=== PATIENT | male | born 1970 | race Caucasian/White ===

== ENCOUNTER 2020-10-19 21:49 | Inpatient (IN) | payer BC, OTHER ==
[~2020-10-19] VITALS: Ht 167.6 cm; Wt 82.1 kg
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
[2020-10-19 21:50] VITALS: BP 232/149
[2020-10-19 22:28] LABS: ABSOLUTE NEUTROPHILS 12.4 thou/uL (1.4-8.2); BASOPHILS 0.4 % (0.0-2.0); EOSINOPHILS 2.2 % (0.0-3.0); HEMATOCRIT 50.3 % (42.0-52.0); HEMOGLOBIN 16.3 gm/dL (14.0-18.0); LYMPHOCYTES 17.4 % (24.0-44.0); MCH 31.4 pg (26.0-34.0); MCHC 32.3 g/dL (28.0-37.0); MCV 97.2 fL (80.0-100.0); MONOCYTES 4.7 % (1.0-8.0); PLATELET COUNT 259 thou/uL (150-400); POLYS 75.3 % (36.0-66.0); RBC 5.18 mil/uL (4.50-6.00); RDW 14.2 % (10.5-14.5); WBC 16.4 thou/uL (4.0-11.0)
[2020-10-19 22:42] LABS: BE(vivo) -7.7 mmol/L (-2 to +3); HCO3 19.1 mmol/L (22.0-26.0); PCO2 43.6 mmHg (35.0-45.0); PO2 501.9 mmHg (80.0-100.0); sO2 99.8 % (92.0-98.0)
[2020-10-19 23:03] LABS: ANION GAP 12 mmol/L (7-16); BUN 14 mg/dL (7-18); CALCIUM 8.5 mg/dL (8.5-10.1); CHLORIDE 100 mmol/L (98-107); CO2 20 mmol/L (21-32); CREATININE 1.5 mg/dL (0.7-1.3); GLUCOSE 286 mg/dL (74-106); SODIUM 132 mmol/L (136-145)
[2020-10-19 23:14] LABS: ALBUMIN 3.7 g/dL (3.4-5.0); SGOT < 5 U/L (15-37); SGPT 31 U/L (30-65); TOTAL BILIRUBIN 0.4 mg/dL (0.2-1.0); TOTAL PROTEIN 7.8 g/dL (6.4-8.2); TROPONIN-I <0.06 ng/mL (<0.06)
[2020-10-20] VITALS (38 sets, daily range): BP systolic 110–167; BP diastolic 65–120
[2020-10-20 00:58] LABS: CHOLESTEROL 194 mg/dL (<200); HDL CHOLESTEROL 57 mg/dL (>40); LDL CHOLESTEROL 123 mg/dL (<100); TC:HDL 3.4 Ratio (Not establshd); TRIGLYCERIDE 74 mg/dL (<150); VLDL 15 mg/dL (<40)
[2020-10-20 01:06] LABS: SERUM ASSESSMENT Clear
--- NOTE | 2020-10-20 02:48 | NUR ---
pt admit to icu via cart on 4l nc at 0100, a&ox4, pleasant and cooperative, mildly anxious, denies cp.
--- NOTE | 2020-10-20 08:11 | EKG ---
[place] [address] [facility] [place] [address] ELECTROCARDIOGRAM REPORT Name: TEMI MEDEIROS Room #: 236-P ADM IN M.R.#: [id number] Admission: 10/19/20 Attend Phys: Chemo Hewitt Discharge: Date of : 68 Report #: [id number] [facility] Test Date: 2020-10-20 Test Time: 07:45:48 Pat Name: TEMI MEDEIROS Department: Room: 236 P Gender: M Field Sales Representative: GRETCHEN : 1970 Requested By: Phuong Sanderson Order Number: [id number] MD: Richard Heath Measurements Intervals [place] Rate: 75 P: 19 [place]: 167 QRS: -76 QRSD: 154 T: 63 QT: 494 QTc: 552 Interpretive Statements Sinus rhythm Probable left atrial enlargement Right bundle branch block Left ventricular hypertrophy Anterior infarct, old Compared to ECG 10/19/2020 22:34:29 Sinus tachycardia no longer present Intraventricular conduction delay no longer present Early repolarization no longer present Prolonged QT interval no longer present Myocardial infarct finding still present Electronically Signed On 10-20-2020 8:11:05 BUCKET PUSHER by Richard Heath [email or web address] <ELECTRONICALLY SIGNED> By: Richard Heath MD, [facility] 10/20/2011 Richard Heath MD, [facility] /EPI
--- NOTE | 2020-10-20 08:30 | NUR ---
chart review. cm tried calling mango via his cell phone, no answer. will cont following as needed for dc needs.
[2020-10-20 08:49] LABS: CREATININE 1.2 mg/dL (0.7-1.3); POTASSIUM 4.3 mmol/L (3.5-5.1)
--- NOTE | 2020-10-20 11:10 | 2DMMODE ---
[facility] [address] [place] [address] 2 D/M-MODE ECHOCARDIOGRAM Name: TEMI MEDEIROS Room #: 236-P ADM IN M.R.#: [id number] Admission: 10/19/20 Attend Phys: Chemo Hewitt Discharge: Date of : 68 Report #: [id number] THIS REPORT FOR: cc: NO FAMILY PHYSICIAN or PCP NO FAMILY PHYSICIAN or PCP Joesph Hernandez MD [facility] ~ APPROVED REPORT Study performed: 10/20/2020 08:33:36 EXAM: Comprehensive 2D, Doppler, and color-flow Echocardiogram Patient Location: ICU Room #: 236 Status: routine BSA: 1.98 HR: 67 bpm BP: 136/86 mmHg Rhythm: NSR Other Information Study Quality: Good Indications Dyspnea CAD Cardiomyopathy Chest Pain Hypertension/HDD Echo Enhancing Agent Indication: Rule out thrombus Agent(s) / Amount(s) Used: Optison 3 cc 2D Dimensions IVSd: 7.60 (7-11mm) LVOT Diam: 20.05 (18-24mm) LVDd: 74.80 mm PWd: 8.37 (7-11mm) Ascending Ao: 32.20 (22-36mm) LVDs: 67.62 (25-40mm) Aortic Root: 33.82 mm IVC: 16.00 mm Volumes Left Atrial Volume (Systole) Single Plane 4CH: 48.60 mL Single Plane 2CH: 85.81 mL LA ESV Index: 35.00 mL/m2 [facility] [address] [place] [address] 2 D/M-MODE ECHOCARDIOGRAM Name: TEMI MEDEIROS Room #: 236-P [facility] IN M.R.#: [id number] Admission: 10/19/20 Attend Phys: Chemo Felder Discharge: Date of : 68 Report #: [id number] Aortic Valve AoV Peak Arnol.: 1.30 m/s AO Peak Gr.: 6.74 mmHg LVOT Max P.33 mmHg LVOT Max V: 1.04 m/s MAGED Vmax: 2.53 cm2 Mitral Valve E/A Ratio: 1.2 MV Decel. Time: 129.30 ms MV E Max Arnol.: 1.05 m/s MV A Arnol.: 0.87 m/s MV PHT: 37.50 ms IVRT: 138.41 ms Pulmonary Valve PV Peak Arnol.: 1.03 m/s PV Peak Gr.: 4.27 mmHg Pulmonary Vein P Vein S: 0.57 m/s P Vein A: 0.23 m/s P Vein D: 0.54 m/s P Vein A Dur.: 106.1 msec P Vein S/D Ratio: 1.06 Left Ventricle Left ventricle is dilated. Mid to distal septal, anterior, and apical wall akinesis There is normal left ventricular wall thickness. Left ventricular ejection fraction is severely decreased. LVEF is 25-30%. Moderate diastolic dysfunction Right Ventricle The right ventricle is normal size. The right ventricular systolic function is normal. Atria Left atrium is dilated. Right atrium is at the upper limits of normal. Aortic Valve Aortic valve is mildly calcified. No aortic regurgitation is present. There is no aortic valvular stenosis. Mitral Valve The mitral valve is normal in structure. Mild-moderate mitral regurgitation. No evidence of mitral valve stenosis. Tricuspid Valve [facility] [address] [place] [address] 2 D/M-MODE ECHOCARDIOGRAM Name: TEMI MEDEIROS Room #: 236-[facility] IN M.R.#: [id number] Admission: 10/19/20 Attend Phys: Chemo Felder Discharge: Date of : 68 Report #: [id number] The tricuspid valve is normal in structure. There is no tricuspid valve regurgitation noted. Pulmonic Valve The pulmonary valve is normal in structure. There is no pulmonic valvular regurgitation. Great Vessels The aortic root is normal in size. IVC is normal in size and collapses >50% with inspiration. Pericardium There is no pericardial effusion. <Conclusion> Left ventricular ejection fraction is severely decreased. Mid to distal septal, anterior, and apical wall akinesis LVEF is 25-30%. Moderate diastolic dysfunction Aortic valve is mildly calcified. No aortic regurgitation or stenosis The mitral valve is normal in structure. Mild-moderate mitral regurgitation. Pulmonary artery pressure could not be reliably ascertained. There is no pericardial effusion. <ELECTRONICALLY SIGNED> By: Joesph Hernandez MD, FAC 10/20/209 08 08 Joesph Hernandez MD, FAC /INF
--- NOTE | 2020-10-20 12:47 | EKG ---
[facility] [place] [address] ELECTROCARDIOGRAM REPORT Name: TEMI MEDEIROS Room #: 236-P ADM IN M.R.#: [id number] Admission: 10/19/20 Attend Phys: Chemo Hewitt Discharge: Date of : 68 Report #: [id number] [facility] ED Test Date: 2020-10-19 Test Time: 22:34:29 Pat Name: TEMI MEDEIROS Department: Room: 236 P Gender: M Yardage Control Operator Forming: ALVARO : 1970 Requested By: Chemo Hewitt Order Number: [id number] MD: Richard Heath Measurements Intervals [place] Rate: 100 P: 52 [place]: 153 QRS: -74 QRSD: 151 T: 96 QT: 412 QTc: 532 Interpretive Statements Sinus tachycardia Biatrial enlargement Right bundle branch block LVH with IVCD and secondary repol abn Lateral leads are also involved Prolonged QT interval No previous ECG available for comparison Electronically Signed On 10-20-2020 12:47:13 OIL WELL SHOOTER by Richard Heath [email or web address] <ELECTRONICALLY SIGNED> By: Richard Heath MD, [facility] 10/20/20 1247 33 33 Richard Heath MD, [facility] /EPI
--- NOTE | 2020-10-20 12:47 | EKG ---
[place] [address] [address] [facility] [place] [address] ELECTROCARDIOGRAM REPORT Name: TEMI MEDEIROS Room #: 236-P ADM IN M.R.#: [id number] Admission: 10/19/20 Attend Phys: Chemo Hewitt Discharge: Date of : 68 Report #: [id number] [facility] ED Test Date: 2020-10-19 Test Time: 22:10:00 Pat Name: TEMI MEDEIROS Department: Room: 236 Gender: M Bit Tapper: DAGMAR : 1970 Requested By: Chemo Hewitt Order Number: [id number] MD: Richard Heath Measurements Intervals [place] Rate: 139 P: 0 [place]: 133 QRS: -75 QRSD: 139 T: 89 QT: 392 QTc: 596 Interpretive Statements Sinus tachycardia vs. AFLUTTER with 2:1 block Right bundle branch block Left ventricular hypertrophy Inferior infarct, old Anterior infarct, old Lateral leads are also involved Artifact in lead(s) I,II,III,aVR,aVL,aVF,V2,V3,V4,V5,V6 No previous ECG available for comparison Electronically Signed On 10-20-2020 12:46:54 TECHNOLOGY INTERN by Richard Heath [email or web address] <ELECTRONICALLY SIGNED> By: Richard Heath MD, FACC 10/20/20 1246 09 09 Richard Heath MD, FAC /EPI
--- NOTE | 2020-10-20 16:42 | NUR ---
PT RESTING IN BED FOR ENTIRE SHIFT, DID NOT WANT TO GET UP TO CHAIR OR WALK, NEEDS PT/OT ORDERED. PT NOW HAS ORDERS FOR MED/SURG TRANSFER. PT AFEBRILE, POLYUREA, NO BM, ADEQUATE APPETITE. ECCO COMPLETE DONE AT BEDSIDE TODAY. PT HAS BEEN UPDATED AND EDUCATED ON PT CONDITION AND POC. PT PROGRESSING TOWARDS POC.
[2020-10-21] VITALS (19 sets, daily range): BP systolic 122–201; BP diastolic 70–157
[2020-10-21 01:06] LABS: GLYCOHEMOGLOBIN (HGB A1C) 5.9 % (4.8-5.6)
[2020-10-21 05:59] LABS: CALCIUM 8.7 mg/dL (8.5-10.1); CREATININE 1.3 mg/dL (0.7-1.3); MAGNESIUM 2.1 mg/dL (1.8-2.4); POTASSIUM 4.3 mmol/L (3.5-5.1)
[2020-10-21 06:01] LABS: HEMATOCRIT 42.6 % (42.0-52.0); MCH 31.8 pg (26.0-34.0); MCHC 33.2 g/dL (28.0-37.0); MCV 95.8 fL (80.0-100.0); PLATELET COUNT 238 thou/uL (150-400); RBC 4.45 mil/uL (4.50-6.00); RDW 13.7 % (10.5-14.5); WBC 20.8 thou/uL (4.0-11.0)
[2020-10-21 06:09] LABS: HEMOGLOBIN 14.1 gm/dL (14.0-18.0)
--- NOTE | 2020-10-21 07:00 | EKG ---
[facility] [place] [address] ELECTROCARDIOGRAM REPORT Name: TEMI MEDEIROS Room #: 242-P ADM IN M.R.#: [id number] Admission: 10/19/20 Attend Phys: Chemo Hewitt Discharge: Date of : 68 Report #: [id number] [facility] ED Test Date: 2020-10-19 Test Time: 22:07:10 Pat Name: TEMI MEDEIROS Department: Room: 242 P Gender: M Residue Furnace Operator: ALPA : 1970 Requested By: Chemo Hewitt Order Number: [id number] MD: Richard Heath Measurements Intervals [place] Rate: 138 P: -34 [place]: 139 QRS: -77 QRSD: 140 T: 106 QT: 294 QTc: 446 Interpretive Statements Sinus tachycardia vs Atrial Flutter 2:1 block Right bundle branch block LVH with IVCD and secondary repol abnrm Lateral leads are also involved Artifact in lead(s) II,III,aVR,aVL,aVF,V1,V2,V3,V4,V5,V6 and baseline wander in lead(s) V5,V6 No previous ECG available for comparison Electronically Signed On 10-21-2020 7:00:31 MOTORCYCLE RIDING INSTRUCTOR by Richard Heath [email or web address] <ELECTRONICALLY SIGNED> By: Richard Heath MD, [facility] 10/21/20699 06 06 Richard Heath MD, [facility] /EPI
[2020-10-21 07:26] LABS: ABSOLUTE NEUTROPHILS 18.9 thou/uL (1.4-8.2); LARGE PLATELETS OCCASIONAL
--- NOTE | 2020-10-21 10:00 | NUR ---
Called Mariel MARIEE from cardiology to verify that pt is a CCU overflow not medsurg. Pt due to have heart cath in am. BP cuff, sat probe and EKG on pt. Alarms on.
--- NOTE | 2020-10-21 12:59 | NUR ---
Dr. Ibanez here. Update given.
--- NOTE | 2020-10-21 15:00 | NUR ---
pt back on ccu, going for heart cath tomorrow. he will need assist with medication at dc rt expenses at this current time. ok to vouch for 1 month medication, no refills at dc. will cont follow as needed for dc needs.
--- NOTE | 2020-10-21 19:36 | NUR ---
PT PROGRESING TOWARDS GOALS. NPO PAST [place] FOR HEART CATH IN AM. PERMIT HAS BEEN SIGNED. PT DECLINED GETTING OOB TODAY.
[2020-10-22] VITALS (23 sets, daily range): BP systolic 109–149; BP diastolic 56–96
[2020-10-22 06:02] LABS: CALCIUM 8.9 mg/dL (8.5-10.1); CREATININE 1.1 mg/dL (0.7-1.3)
--- NOTE | 2020-10-22 08:33 | NUR ---
ALERT AND ORIENTED AND DENIES PAIN. VITALS STABLE AND IS CCU STATUS. OFF UNIT TO TRUST VAULT CUSTODIAN AT 0830.
--- NOTE | 2020-10-22 09:00 | NUR ---
pt out of room for cath today. when ready for dc home, will need rx to be sent to outpt [facility] to vouch for 1 month no refills to assist at dc. will cont following as needed for dc needs.
[2020-10-22 09:08] LABS: BE(vivo) 1.8 mmol/L (-2 to +3); HCO3 29.2 mmol/L (22.0-26.0); PCO2 55.4 mmHg (35.0-45.0); pH 7.339 (7.360-7.450); sO2 74.9 % (92.0-98.0)
[2020-10-22 09:09] LABS: BE(vivo) 4.4 mmol/L (-2 to +3); HCO3 32.4 mmol/L (22.0-26.0); PCO2 60.1 mmHg (35.0-45.0); PO2 105.6 mmHg (80.0-100.0); pH 7.349 (7.360-7.450); sO2 97.5 % (92.0-98.0)
[2020-10-22 09:11] LABS: PO2 42.9 mmHg (80.0-100.0)
--- NOTE | 2020-10-22 10:04 | NUR ---
PATIENT BACK FROM [facility], RT GROIN DRESSING INTACT, NO HEMATOMA NOTED, PATIENT DENIES PAIN. VITALS STABLE.
--- NOTE | 2020-10-22 17:06 | CATHLAB ---
[facility] [address] [place] [address] INVASIVE PROCEDURE REPORT Name: TEMI MEDEIROS Room #: 242-P ADM IN M.R.#: [id number] Admission: 10/19/20 Attend Phys: Fady Cruz MD Discharge: Date of : 68 Report #: [id number] THIS REPORT FOR: cc: NO FAMILY PHYSICIAN or PCP NO FAMILY PHYSICIAN or PCP Leighton Feliz MD ~ APPROVED REPORT Study performed: 10/22/2020 08:13:14 Patient Details Patient Status: In-Patient Room #: The patient is a 50 year-old male Event Personnel Leighton Feliz Tariff Compiling Clerk, Leeanne Shaw RN RN, Car Spencer RTR Sammy Jacobson Sherra RTR Monitor, Yancy Donovan RTR Ethical Hacker Procedures Performed Art Access - R femoral artery* Garrett Access - R femoral vein Right and Left Heart Cath w/or w/o Coronarie [id number] [facility] 16935 Initial Mod Sed Same Phys/QHP Gr 911141 04655 Mod Sed Same Phys/QHP Ea [id number] Hemostasis with Manual pressure Indication CHF Current Status: , Dyspnea, Cardiomyopathy Risk Factors Hypercholesterolemia, Coronary Artery DiseaseHypertension, Tobacco History () Previous Procedures/Diagnoses Previous PCI, Previous GA Procedure Narrative The Right Groin^ was infiltrated with 1% Lidocaine subcutaneous anesthesia. A Right Heart Catheterization was performed with a 67 Fr. [place]-Driss catheter and pressure were recorded. Cardiac outputs were obtained by the Antony method. A PINNACLE 4FR Sheath #[id number] sheath was inserted into the RFA^. Coronary angiography was performed using coronary diagnostic catheters. The right coronary system was accessed and visualized with a JR4 catheter. The left coronary system was accessed and visualized with a JL4 catheter. The left ventricle was [facility] [address] [place] [address] INVASIVE PROCEDURE REPORT Name: TEMI MEDEIROS Room #: 242-[facility] IN [facility].#: [id number] Admission: 10/19/20 Attend Phys: Fady Cruz MD Discharge: Date of : 68 Report #: [id number] accessed and visualized with a PIGTAIL catheter. Left ventriculogram was performed in 30 degree projection. Hemostasis was obtained with manual pressure following sheath removal without any complications. The patient tolerated the procedure well and there were no complications associated with the procedure. There was no hematoma. Intraoperative Conscious Sedation Sedation start time: 841 Case end Time: 931 Fentanyl 100 mcg Versed 1 mg Fluoro Time: 2.30 minutes Dose: DAP 5029.00 cGycm2 658 mGy Contrast Type and Amount: Omnipaque 90 ml Coronary Angiography The patient's coronary anatomy is right dominant. Diagnostic Cath Left Main The left main artery is a large-caliber vessel, patent with no flow-limiting lesions. LAD There is a stent in the midsegment, patent with mild restenosis. There is mild disease in the proximal segment of the LAD. Diagonal 1 There is a moderate stenosis at the ostium, 50%. Diagonal 2 This vessel originates from the mid LAD stent segment, has a borderline ostial stenosis. Circumflex This vessel is patent with no flow-limiting lesions. OM1 This is a moderate-sized caliber vessel, patent with no flow-limiting lesions. OM2 This is a moderate-sized caliber vessel, patent with no flow-limiting lesions. Right Coronary The RCA is a dominant vessel with mild disease proximally. R PDA There is a moderate stenosis in the midsegment, 40%. RPLV This is at least a moderate-sized caliber vessel that traverses the inferolateral segment, appears angiographically normal. Left Ventriculography The left ventricle is dilated in size with Diminished contractility. The left ventricular ejection fraction is estimated to be 15-20%. Hemodynamics The right atrial mean pressure is 9 mmHg. The right ventricular [facility] [address] [place] [address] INVASIVE PROCEDURE REPORT Name: TEMI MEDEIROS Room #: [facility] IN M.R.#: [id number] Admission: 10/19/20 Attend Phys: Fady Cruz MD Discharge: Date of : 68 Report #: [id number] pressure is 35/8 mmHg. The pulmonary artery pressure is 34/20 mmHg with a mean of 25 mmHg. The mean pulmonary capillary wedge pressure is 18 mmHg. The aortic pressure is 137/97 mmHg with a mean of 115 mmHg. The left ventricular pressure is 147/23 mmHg with a mean of mmHg. The left ventricular end diastolic pressure is 31 mmHg. PaO2 saturation is 74.90 %. Arterial saturation is 98.40 %. The cardiac output using the Antony method is 5.33 L/min. The cardiac index using the Antony method is 2.73 L/min/m2. Conclusion 1. Severe, nonischemic dilated cardiomyopathy. 2. There is a patent stent in the mid LAD with mild restenosis. 3. There are moderate lesions in the first and second diagonal arteries and PDA. 4. Recommend guideline directed medical therapy. <ELECTRONICALLY SIGNED> By: Leighton Feliz MD 10/22/201705 05 05 Leighton Feliz MD /INF
[2020-10-23] VITALS (8 sets, daily range): BP systolic 117–146; BP diastolic 81–96
--- NOTE | 2020-10-23 04:24 | NUR ---
Pt up to BSC with stand-by assist, had formed BM and voided. Now up to chair, O2 taken off to check room air sat. Right groin site remains clean, dry, drsg intact, no bruising or hematoma.
[2020-10-23 05:19] LABS: HEMATOCRIT 48.6 % (42.0-52.0); MCHC 33.1 g/dL (28.0-37.0); MCV 96.7 fL (80.0-100.0); RBC 5.02 mil/uL (4.50-6.00); RDW 14.1 % (10.5-14.5); WBC 10.5 thou/uL (4.0-11.0)
[2020-10-23 05:20] LABS: HEMOGLOBIN 16.1 gm/dL (14.0-18.0)
[2020-10-23 05:37] LABS: CALCIUM 8.8 mg/dL (8.5-10.1); CREATININE 1.3 mg/dL (0.7-1.3)
[2020-10-23 05:45] LABS: POTASSIUM 3.9 mmol/L (3.5-5.1)
[2020-10-23] MEDS ORDERED: COZAAR 50 MG TA50 M1 PO (08:42)
[2020-10-23] MEDS ORDERED: COREG6.25 MG PO (08:42)
[2020-10-23] MEDS ORDERED: SPIRONOLACTONE25 M1 PO (08:42)
[2020-10-23] MEDS ORDERED: TORSEMIDE10 MG PO (08:42)
[2020-10-23] MEDS ORDERED: ASPIR 8181 MG PO (08:42)
[2020-10-23] MEDS ORDERED: LIPITOR40 MG PO (08:42)
--- NOTE | 2020-10-23 09:12 | NUR ---
ALERT AND ORIENTED AND SITTING UP IN THE CHAIR, DENIES SOA OR CHEST PAIN. VITALS STABLE. TOLERATING DIET W/O NAUSEA. DRESSING ON RT GROIN C/D/I AND NO HEMATOMA NOTED. USING CALL LIGHT AND ABLE TO USE URINAL APPROPRIATELY. STATES HE IS "GOING HOME TODAY ONE WAY OR ANOTHER" IF NOT DISCHARGED HE STATES "I WILL CHECK MYSELF OUT". I EXPLAINED TO PATIENT THE NEED FOR HIM TO WAIT FOR DOCTORS TO ROUND TO MAKE AN INFORMED DECISION AND IS AGREEABLE AT THIS TIME. ASSISTED BACK TO BED AND IS NOW RESTING.
--- NOTE | 2020-10-23 10:30 | NUR ---
PER DR. ALEXANDRA, PATIENT OK TO GO HOME W/O BEING FITTED WITH LIFE VEST. A ROPER OPERATOR FOR VEST CALLED AND THIS INFORMATION GIVEN TO REP AND ALSO DR. ALEXANDRA'S OFFICE TEL NUMBER PROVIDED.
--- NOTE | 2020-10-23 11:41 | NUR ---
Spoke with patient who reports he is to [place] today. he has established PCP. He has health insurance and reports he can afford his prescriptions. Pharmacy is in [place] near home. Patient on room air. no needs from [facility]
[2020-10-23] MEDS ORDERED: AUGMENTIN 875-1 EACH PO (12:08)
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
== END 2020-10-23 12:40 | disposition home or self-care (01) | DRG 286 ==
LOC: ER 21:49 → EDBD 21:49 → EROBS 23:45 → ICU 23:45
PROVIDERS: Emergency Medicine; Nurse Practitioner; Nurse Practitioner Family; ADMIT Hospitalist; ATTEND Hospitalist
PROC: B2111ZZ Fluoroscopy of Multiple Coronary Arteries using Low Osmolar Contrast (ICD-10-PCS; principal; 2020-10-22)
PROC: 4A023N8 Measurement of Cardiac Sampling and Pressure, Bilateral, Percutaneous Approach (ICD-10-PCS; principal; 2020-10-22)
PROC: B2151ZZ Fluoroscopy of Left Heart using Low Osmolar Contrast (ICD-10-PCS; principal; 2020-10-22)
DX: I11.0 Hypertensive heart disease with heart failure (principal); J18.9 Pneumonia, unspecified organism; J96.01 Acute respiratory failure with hypoxia; I50.31 Acute diastolic (congestive) heart failure; I24.9 Acute ischemic heart disease, unspecified; N17.9 Acute kidney failure, unspecified; I25.10 Atherosclerotic heart disease of native coronary artery without angina pectoris; E78.5 Hyperlipidemia, unspecified; F17.210 Nicotine dependence, cigarettes, uncomplicated; R73.9 Hyperglycemia, unspecified; I25.5 Ischemic cardiomyopathy; I25.2 Old myocardial infarction; Z95.5 Presence of coronary angioplasty implant and graft; Z83.3 Family history of diabetes mellitus; Z71.6 Tobacco abuse counseling; Z91.14 Patient's other noncompliance with medication regimen
CPT/HCPCS: 10078; 10204